=== PATIENT | male | born 1975 | race Caucasian/White ===

== ENCOUNTER 2021-04-12 14:19 | Emergency (ER) | payer OTHER ==
[~2021-04-12] VITALS: Ht 180.3 cm; Wt 109.1 kg
[2021-04-12 14:32] VITALS: BP 119/77
[2021-04-12] MEDS ORDERED: ketorolac trometh. 30mg/ml inj. IM ONE (14:40)
[2021-04-12] MEDS ORDERED: CYCL-1 PO (14:40)
[2021-04-12 14:53] LABS: BASOPHILS # (AUTO) 0.1 X10'3 (0-0.2); BASOPHILS % (AUTO) 0.6 % (0-1); EOSINOPHILS # (AUTO) 0.3 X10'3 (0-0.9); EOSINOPHILS % (AUTO) 2.8 % (0-6); HEMATOCRIT 40.9 % (42.0-52.0); HEMOGLOBIN 14.2 g/dl (14.0-17.9); LYMPHOCYTES # (AUTO) 2.3 X10'3 (1.1-4.8); LYMPHOCYTES % (AUTO) 24.9 % (21-51); MEAN CORPUSCULAR HEMOGLOBIN 32.8 PG (27.0-31.0); MEAN CORPUSCULAR HGB CONC 34.8 g/dL (33.0-36.5); MEAN CORPUSCULAR VOLUME 94.4 FL (78-98); MEAN PLATELET VOLUME 8.1 FL (7.4-10.4); MONOCYTES % (AUTO) 10.5 % (2-12); NEUTROPHILS # (AUTO) 5.7 X10'3 (1.8-7.7); NEUTROPHILS % (AUTO) 61.2 % (42-75); PLATELET COUNT 201 X10'3 (140-440); RED BLOOD COUNT 4.34 X10'6 (4.70-6.10); RED CELL DISTRIBUTION WIDTH 12.9 % (11.5-14.5); WHITE BLOOD COUNT 9.3 X10'3 (4.5-11.0)
[2021-04-12 15:15] LABS: ALANINE AMINOTRANSFERASE 24 U/L (12-78); ALBUMIN 3.8 G/DL (3.4-5.0); ALBUMIN/GLOBULIN RATIO 1.2 (1.1-1.5); ALKALINE PHOSPHATASE 67 IU/L (46-116); ANION GAP 11 (8-16); ASPARTATE AMINO TRANSFERASE 23 U/L (10-37); BILIRUBIN,TOTAL 0.4 MG/DL (0.1-1.0); BLOOD UREA NITROGEN 23 MG/DL (7-18); BUN/CREATININE RATIO 19.5 (5.4-32.0); CALCIUM 8.8 MG/DL (8.5-10.1); CHLORIDE 105 MMOL/L (99-107); CREATINE KINASE 312 U/L (39-308); CREATININE 1.18 MG/DL (0.60-1.10); GLUCOSE 120 MG/DL (70-104); SODIUM 143 MMOL/L (135-145); TOTAL CARBON DIOXIDE 26.8 MMOL/L (24-32); TOTAL PROTEIN 7.1 G/DL (6.4-8.2); eGFR 66 ML/MIN
== END 2021-04-12 15:39 | disposition home or self-care (01) ==
LOC: ER 14:20
DX: M54.2 Cervicalgia (principal); M54.9 Dorsalgia, unspecified; E11.9 Type 2 diabetes mellitus without complications; Z87.01 Personal history of pneumonia (recurrent); Z21 Asymptomatic human immunodeficiency virus [HIV] infection status; Z72.89 Other problems related to lifestyle; Z98.890 Other specified postprocedural states; Z88.2 Allergy status to sulfonamides; Z79.899 Other long term (current) drug therapy
CPT/HCPCS: 36415; 80053; 82550; 85025; 96372; 99283; J1885

== ENCOUNTER 2025-06-13 04:11 | Emergency (ER) | payer OTHER, MEDICAID ==
[~2025-06-13] VITALS: Ht 177.8 cm; Wt 90.0 kg
[~2025-06-13 04:11] MED LIST: CYCL-1 PO
--- NOTE | 2025-06-13 04:42 | Physician Documentation ---
History of Present Illness ~ Chief Complaint: Leg Pain Stated Complaint: LEFT FLANK PAIN Time Seen by MD: 04:41 Primary Medical Doctor: LAUREANO ALLAN Patient presents to the emergency room with chief complaint of back pain. Patient states that he was helping moving boxes in his garage when he was not using good technique when he suddenly felt pain that has lower back. No history of such. Also having some urinary frequency. No fevers Tetanus witin 5 years: Yes Medication Reconciliation Allergies: Coded Allergies: Sulfa (Sulfonamide Antibiotics) (Verified Allergy, Unknown, respiratory arrest, 06/13/25) onion (Verified Allergy, Unknown, 06/13/25) Scheduled Cyclobenzaprine* (Cyclobenzaprine*), 1 TAB PO Q8H Ibuprofen (Ibuprofen), 1 TAB PO Q8H Scheduled PRN Hydrocodone Bit/Acetaminophen 5/325 MG ([place] 5/325 MG), 1-2 TAB PO Q4HPRN PRN for pain Past Medical History Past Medical History: Pneumonia, Diabetes, HIV Other Past Surgical History: Hernia surgery Alcohol Use: Occasionally Drug Use: none Lives with: Other Lives In: Home Review of Systems ROS All review of systems negative except as per HPI Physical Exam Vital Signs: Temperature: 98.1, Source: Oral, Heart Rate: 70, Respiratory Rate: 14, BP: 124/80, Pulse Oximetry: 99, Weight: 102.000 Physical Exam General: Patient is awake, alert, oriented x4 in no acute distress Head: Normocephalic and atraumatic. Eyes: Conjunctival normal. EOMI. PERRL. ENT: Mucous membranes moist. Neck: Supple, trachea is midline. Chest: Clear to auscultation bilaterally without rales, rhonchi, or wheezes. There is no accessory muscle use or retractions. Cardiac: RRR without murmurs, gallops, or rubs. Abd: Soft, nondistended, nontender, with normoactive bowel sounds. No guarding, rebound, or rigidity. Extremities: Normal strength. Normal range of motion. No deformities or edema. Back: Diffuse tenderness to lower lumbar Progress Results/Orders Results/Orders Vital Signs 06/13/25 06/13/25 06/13/25 06/13/25 04:39 04:39 04:45 05:54 Temp 98.5 98.1 98.5 98.5 Pulse 78 70 82 70 Resp 18 14 16 16 B/P (MAP) 103/81 124/80 103/81 (88) 97/61 (73) Pulse Ox 99 99 98 98 O2 Flow Rate 0 0 0 06/13/25 06:56 Pulse 67 Resp 18 B/P (MAP) 95/61 Pulse Ox 97 Laboratory Tests Test 06/13/25 05:24 Urine Specimen Description Urinal Urine Color Yellow Urine Clarity Clear Urine pH 8.0 Urine Specific [place] <=1.005 Urine Protein Negative Urine Glucose (UA) Negative Urine Ketones Negative Urine Occult Blood Negative Urine Nitrite Negative Urine Bilirubin Negative Urine Urobilinogen 0.2 Urine Leukocyte Esterase Negative Urine Culture Indicated Not ind Volume Urine Centrifuged 10 ml Urine Comment Medical Decision Making Additional info obtained from: other Findings Patient presents to the emergency room with one day history of back pain as per HPI. Differentials include but are not limited to lumbago, pyelonephritis, kidney stone, aortic pathology. UA came back and it is clean. With the mechanism of injury more like lumbar go. The patient will be discharged home with a combination of NS AID and opioid based pain medicine with back care instructions. Patient does not have identifiable emergent medical condition that warrants inpatient medical care at this time. The patient is deemed safe for discharge with outpatient follow up. DISCLAIMER Inadvertent spelling and grammatical errors,inadvertent well reactivator operator errors,syntax errors, grammatical errors, and spelling errors are likely due to EMR/dictation software use and do not reflect on the overall quality of patient care. Note that the electronic time recorded on this note does not necessarily reflect the actual time of the patient encounter. Departure Disposition: 01 HOME / SELF CARE / HOMELESS Impression: Primary Impression: Lumbar back pain Condition: Stable Discharge Instructions: Muscle Strain, [id number] Additional Instructions: Thank you for coming to our Emergency Department today. Please stay like a robot meaning that you keep your back straight and do not bend or twist for about one week. Also do not lift anything heavier than 15 lb about one week. Please ask your nurse or provider if you have questions about your care today and do not leave until all your questions have been answered. Please use any medications given as directed and follow-up with your doctor (or the doctor you were referred to) in the next 1-3 days. Your primary care doctor can help to coordinate outpatient specialty care and provide authorization for specialty referral as needed. If you do not have a primary care doctor you may follow up at a [facility]. You may also use motrin and tylenol as needed for fever and/or pain unless instructed otherwise by your provider or nurse. Indications for more urgent follow-up have been discussed, but you may return to the Emergency Department at ANY time for any worrisome or worsening symptoms. [facility] Facilities: [facility] Facilities: [facility]: [facility] [place] Address:[address] [place] [id number] [facility]: [place] Address:Critical access hospital[address] [place] [address] [facility]: [facility] Address:[address] [place] [id number] [facility] Address:[address] [place] [address] Registration Billing Pharmacy Referrals [facility] Address:[address] [place] [address] Referrals: NO PRIMARY CARE PROVIDER (PCP) Prescriptions Hydrocodone Bit/Acetaminophen 5/325 MG ([place] 5/325 MG) 5 Mg/325 Mg Tablet 1-2 TAB PO Q4HPRN PRN for pain for 3 Days, #40 TAB Prov: RICARDO CARDOZA MD 06/13/25 Ibuprofen (Ibuprofen) 600 Mg Tablet 1 TAB PO Q8H for pain for 10 Days, #30 TAB 0 Refills with food Prov: RICARDO CARDOZA MD 06/13/25 Education Educated: Patient Educated regarding: diagnosis, need for follow up Signature Scribe Signature: None Attestation: Dictation of Dr. Osborne and me. PERRI OSBORNE MD Jun 13, 2025 04:42 RICARDO CARDOZA MD Jun 13, 2025 06:46
[2025-06-13] MEDS: ondansetron 4mg rapidly disintigrating tab PO ONE (04:50)
[2025-06-13] MEDS: ketorolac trometh 15mg/ml vial 15 MG/ML ML IM ONE (04:50)
[2025-06-13 05:54] VITALS: TEMP 98.5
[2025-06-13 06:17] LABS: LEUKOCYTE ESTERASE ,URINE NEGATIVE (Neg); NITRITES, URINE NEGATIVE (Neg); OCCULT BLOOD,URINE NEGATIVE (Neg)
[2025-06-13 06:24] LABS: UA COLLECTION TYPE URINAL
[2025-06-13] MEDS ORDERED: IBUP600T52 PO (06:47)
[2025-06-13] MEDS ORDERED: HYDR-3965 PO (06:47)
[2025-06-13 06:56] VITALS: BP 95/61; PULSE 67; RESP 18; O2SAT 97
== END 2025-06-13 07:02 | disposition home or self-care (01) ==
LOC: ER 04:12
DX: M54.50 Low back pain, unspecified (principal); E11.9 Type 2 diabetes mellitus without complications; Z88.2 Allergy status to sulfonamides; Z87.01 Personal history of pneumonia (recurrent); Z79.899 Other long term (current) drug therapy; Z72.89 Other problems related to lifestyle
CPT/HCPCS: 81003; 96372; 99283; J1885